=== PATIENT | male | born 1990 | race Caucasian/White ===

== ENCOUNTER 2022-05-23 14:03 | Emergency (ER) | payer OTHER ==
[2022-05-23 14:41] LABS: Absolute Lymphocytes (CBC) 0.8 K/uL (0.7-4.9); Hematocrit 52.7 % (39.6-49.0); Lymphocytes % 7.4 % (15.3-44.8); MCV 85.6 fL (80-100); MPV 8.1 fL (7.6-11.3); RBC Red Blood Cell Count 6.16 M/uL (4.33-5.43)
[2022-05-23] MEDS ORDERED: FAMOTIDINE 20 MG/2 ML VIAL IV ONE (14:41)
[2022-05-23] MEDS ORDERED: NA CHLORIDE 0.9% 1,000 ML ONE ×2 (14:41→16:31)
[2022-05-23] MEDS ORDERED: ONDANSETRON 4 MG/2 ML VIAL ONE ×3 (14:41→18:40)
[2022-05-23 15:03] LABS: Albumin 4.6 g/dL (3.4-5.0); Bilirubin Total 2.1 mg/dL (0.2-1.0); Potassium 4.1 mmol/L (3.5-5.1)
--- NOTE | 2022-05-23 15:51 | RAD REPORT ---
EXAM DESCRIPTION: CT - Abdomen Pelvis Wo Contrast - 05/23/2022 3:15 pm CLINICAL HISTORY: abd pain, constipation COMPARISON: No comparisons TECHNIQUE: Axial [address] imaging of the abdomen and pelvis was performed without IV contrast. No IV contrast was given because of allergy, abnormal renal function, patient refusal or physician re quest. Oral contrast was given. All CT scans are performed using dose optimization technique as appropriate and may include automated exposure control or mA/KV adjustment according to patient size. FINDINGS: No suspicious findings in the lung bases. The liver, spleen and pancreas show no suspicious findings on non-contrast imaging. Gallbladder and b iliary tree are also without suspicious finding. No hydronephrosis or suspicious renal mass. No significant adrenal finding. Isodense renal masses an d pyelonephritis cannot be excluded in the absence of IV contrast. Well filled urinary bladder shows no suspicious finding. No prostate gland abnormality. No dilated bowel loops or bowel wall thickening. No abnormal stool volume in the colon. The appendix is not clearly defined. There is no indirect evidence for appendicitis. No free air, free fluid or in flammatory stranding. No hernia, mass or bulky lymphadenopathy. No suspicious bony findings. IMPRESSION: Non-contrast enhanced CT abdomen and pelvis imaging show no significant or suspicious fi nding. Full assessment is limited is the absence of IV contrast.
--- NOTE | 2022-05-23 16:35 | ER ---
Nurse's Notes [facility] Name: Celestine Gracia Age: 32 yrs Sex: Male : 1990 Arrival Date: 05/23/2022 Time: 14:08 Bed 5 Private MD: Diagnosis: Acute kidney failure, unspecified;Dehydration Presentation: 05/23 14:08 Chief complaint: Patient states: N/V and abd cramping after eating anything that began ss 6 days ago. Last BM 6 days ago. Coronavirus screen: Client denies travel out of the [place] in the last 14 days. Ebola Screen: Patient denies exposure to infectious person. Patient denies travel to an Ebola-affected area in the 21 days before illness onset. Initial Sepsis Screen: Does the patient meet any 2 criteria? No. Patient's initial sepsis screen is negative. Does the patient have a suspected source of infection? No. Patient's initial sepsis screen is negative. Risk Assessment: Do you want to hurt yourself or someone else? Patient reports no desire to harm self or others. Onset of symptoms was May 16, 2022. 14:08 Method Of Arrival: Law Enforcement: [place] [employer] ss 14:08 Acuity: LUIS ENRIQUE 3 ss Historical: - Allergies: 14:12 No Known Allergies; ss - Home Meds: 14:12 lisinopril 20 mg Oral tab 1 tab once daily [Active]; atorvastatin 20 mg oral tab 1 tab ss once daily [Active]; - PMHx: 14:12 Hypertensive disorder; high cholesterol; ss - PSHx: 14:12 hemorrhoids; ss - Immunization history:: Client reports receiving the 2nd dose of the Covid vaccine. - Social history:: Smoking status: Patient denies any tobacco usage or history of. Patient/guardian denies using alcohol, street drugs. Screenin:17 Abuse screen: Denies threats or abuse. Denies injuries from another. Nutritional ph screening: No deficits noted. Tuberculosis screening: No symptoms or risk factors identified. Fall Risk None identified. Assessment: 15:19 General: Appears in no apparent distress. ill, slender, Behavior is calm, cooperative, ph appropriate for age, drowsy. Pain: Complains of pain in abdomen. Neuro: Level of Consciousness is awake, alert, obeys commands, Oriented to person, place, time, situation. Cardiovascular: Capillary refill < 3 seconds in bilateral fingers Patient's skin is warm and dry. GI: Abdomen is non-distended, Reports lower abdominal pain, upper abdominal pain, nausea, vomiting. Derm: Skin is pink, warm \T\ dry. Musculoskeletal: Circulation, motion, and sensation intact. Range of motion: intact in all extremities. 16:40 Reassessment: Patient appears in no apparent distress at this time. Patient and/or ph family updated on plan of care and expected duration. Pain level reassessed. Patient is alert, oriented x 3, equal unlabored respirations, skin warm/dry/pink. report called to [facility], awaiting transport. 17:59 Reassessment: Patient appears in no apparent distress at this time. Patient and/or ph family updated on plan of care and expected duration. Pain level reassessed. Patient is alert, oriented x 3, equal unlabored respirations, skin warm/dry/pink. Vital Signs: 14:08 BP 126 / 79; Pulse 89; Resp 15; Pulse Ox 99% on R/A; Weight 61.23 kg; Height 6 ft. 0 ss in. (182.88 cm); Pain 6/10; 16:30 BP 136 / 62; Pulse 84; Resp 16; Pulse Ox 98% on R/A; ph 18:00 BP 118 / 75; Pulse 74; Resp 15; Temp 97.5(TE); Pulse Ox 98% on R/A; ph 14:08 Body Mass Index 18.31 (61.23 kg, 182.88 cm) ss ED Course: 14:08 Patient arrived in ED. ss 14:09 Nahed Montenegro FNP-C is [facility]. kb 14:09 Ole Osborne MD is Attending Physician. kb 14:11 Triage completed. ss 14:12 Arm band placed on right wrist. ss 14:15 Inserted saline lock: 22 gauge in right forearm, using aseptic technique. Blood ph collected. 14:21 Shaunna Myers, LATASHA is Primary Nurse. ph 15:17 Abdomen In Process Unspecified. EDMS 15:17 Patient has correct armband on for positive identification. Bed in low position. Call ph light in reach. Side rails up X 1. Pulse ox on. NIBP on. 18:57 No provider procedures requiring assistance completed. Patient transferred, IV remains ph in place. Administered Medications: 14:40 Drug: NS 0.9% 1000 ml Route: IV; Rate: 1 bolus; Site: right forearm; ph 16:00 Follow up: Response: No adverse reaction; IV Status: Completed infusion; IV Intake: ph 1000ml 14:40 Drug: Zofran (Ondansetron) 4 mg Route: IVP; Site: right forearm; ph 17:49 Follow up: Response: No adverse reaction ll1 14:41 Drug: Pepcid (famotidine) 20 mg Route: IVP; Site: right forearm; ph 17:49 Follow up: Response: No adverse reaction ll1 16:30 Drug: NS 0.9% 1000 ml Route: IV; Rate: 1000 ml; Site: right forearm; ph 17:48 Follow up: Response: No adverse reaction; IV Status: Completed infusion; IV Intake: ll1 1000ml 17:48 Drug: NS 0.9% 1000 ml Route: IV; Rate: 100 ml/hr; Site: right forearm; ll1 18:57 Follow up: Response: No adverse reaction; IV Status: Completed infusion; IV Intake: ph 1000ml 18:20 Drug: Zofran (Ondansetron) 4 mg Route: IVP; Site: right antecubital; ph 18:57 Follow up: Response: No adverse reaction ph 18:49 Drug: Bentyl (dicyclomine) 20 mg Route: IM; Site: left deltoid; ph 18:58 Follow up: Response: No adverse reaction ph Medication: 15:17 VIS not applicable for this client. ph Intake: 16:00 IV: 1000ml; Total: 1000ml. ph 17:48 IV: 1000ml; Total: 2000ml. ll1 18:57 IV: 1000ml; Total: 3000ml. ph Outcome: 16:34 ER care complete, transfer ordered by . olivia 19:27 Patient left the ED. jb4 19:27 Transferred by ground EMS to [facility], Transfer form ph completed. X-rays sent w/ patient. 19:27 Condition: stable Signatures: Dispatcher [employer] EDMS Nahed Montenegro FNP-C FNP-Ckb Smirch, Shelby, RN RN ss Hall, Patricia, RN RN Hoang Menendez RN RN jb4 Demond, Lynsay, RN RN ll1
--- NOTE | 2022-05-23 16:35 | EDPHYS ---
Physician Documentation [facility] Name: Celestine Gracia Age: 32 yrs Sex: Male : 1990 Arrival Date: 05/23/2022 Time: 14:08 Bed 5 Private MD: ED Physician Ole Osborne HPI: 05/23 16:34 This 32 yrs old Male presents to ER via Law Enforcement with complaints of kb Nausea/Vomiting. 16:34 The patient presents to the emergency department with nausea, vomiting, abdominal pain. kb Onset: The symptoms/episode began/occurred 5 day(s) ago. Possible causes: unknown. The symptoms are aggravated by nothing. The symptoms are alleviated by nothing. Associated signs and symptoms: Pertinent positives: abdominal pain, constipation, nausea, vomiting. Severity of symptoms: At their worst the symptoms were moderate in the emergency department the symptoms are unchanged. The patient has not experienced similar symptoms in the past. The patient has not recently seen a physician. Patient reports nausea, vomiting, and abdominal pain for 5 days. States unable to tolerate anything by mouth. Reports last bowel movement 6 days ago.. Historical: - Allergies: 14:12 No Known Allergies; ss - Home Meds: 14:12 lisinopril 20 mg Oral tab 1 tab once daily [Active]; atorvastatin 20 mg oral tab 1 tab ss once daily [Active]; - PMHx: 14:12 Hypertensive disorder; high cholesterol; ss - PSHx: 14:12 hemorrhoids; ss - Immunization history:: Client reports receiving the 2nd dose of the Covid vaccine. - Social history:: Smoking status: Patient denies any tobacco usage or history of. Patient/guardian denies using alcohol, street drugs. ROS: 16:32 Constitutional: Negative for fever, chills, and weight loss. kb 16:32 Abdomen/GI: Positive for abdominal pain, nausea and vomiting, constipation. 16:32 All other systems are negative. Exam: 16:32 Constitutional: This is a well developed, well nourished patient who is awake, alert, kb and in no acute distress. Head/Face: Normocephalic, atraumatic. ENT: Moist Mucous membranes Chest/axilla: Normal chest wall appearance and motion. Cardiovascular: Regular rate and rhythm with a normal S1 and S2. No gallops, murmurs, or rubs. No pulse deficits. Respiratory: Respirations even and unlabored. No increased work of breathing. Talking in full sentences Skin: Warm, dry with normal turgor. Normal color. MS/ Extremity: Pulses equal, no cyanosis. Neurovascular intact. Full, normal range of motion. Neuro: Awake and alert, GCS 15, oriented to person, place, time, and situation. Moves all extremities. Normal gait. Psych: Awake, alert, with orientation to person, place and time. Behavior, mood, and affect are within normal limits. 16:32 Abdomen/GI: Inspection: abdomen appears normal, Bowel sounds: normal, Palpation: soft, in all quadrants, moderate abdominal tenderness, in all quadrants. Vital Signs: 14:08 BP 126 / 79; Pulse 89; Resp 15; Pulse Ox 99% on R/A; Weight 61.23 kg; Height 6 ft. 0 ss in. (182.88 cm); Pain 6/10; 16:30 BP 136 / 62; Pulse 84; Resp 16; Pulse Ox 98% on R/A; ph 18:00 BP 118 / 75; Pulse 74; Resp 15; Temp 97.5(TE); Pulse Ox 98% on R/A; ph 14:08 Body Mass Index 18.31 (61.23 kg, 182.88 cm) ss MDM: 14:09 Patient medically screened. kb 16:32 Data reviewed: vital signs, nurses notes. Data interpreted: Pulse oximetry: on room air kb is 99 %. Interpretation: normal. Counseling: I had a detailed discussion with the patient and/or guardian regarding: the historical points, exam findings, and any diagnostic results supporting the discharge/admit diagnosis, lab results, radiology results, the need to transfer to another facility, inmate. 16:32 ED course: Dr Kaden Sanders accepts pt for transfer to [facility]. kb 05/23 14:12 Order name: CBC with Diff; Complete Time: 14:45 kb 05/23 14:12 Order name: CMP; Complete Time: 15:20 kb 05/23 14:12 Order name: Lipase; Complete Time: 15:20 kb 05/23 14:12 Order name: COVID-19 SARS RT PCR (Document "Date of Onset" if Symptomatic); Complete kb Time: 15:51 05/23 15:08 Order name: Abdomen ; Complete Time: 15:54 EDMS 05/23 14:12 Order name: IV Saline Lock; Complete Time: 14:40 kb 05/23 14:12 Order name: Labs collected and sent; Complete Time: 14:40 kb Administered Medications: 14:40 Drug: NS 0.9% 1000 ml Route: IV; Rate: 1 bolus; Site: right forearm; ph 16:00 Follow up: Response: No adverse reaction; IV Status: Completed infusion; IV Intake: ph 1000ml 14:40 Drug: Zofran (Ondansetron) 4 mg Route: IVP; Site: right forearm; ph 17:49 Follow up: Response: No adverse reaction ll1 14:41 Drug: Pepcid (famotidine) 20 mg Route: IVP; Site: right forearm; ph 17:49 Follow up: Response: No adverse reaction ll1 16:30 Drug: NS 0.9% 1000 ml Route: IV; Rate: 1000 ml; Site: right forearm; ph 17:48 Follow up: Response: No adverse reaction; IV Status: Completed infusion; IV Intake: ll1 1000ml 17:48 Drug: NS 0.9% 1000 ml Route: IV; Rate: 100 ml/hr; Site: right forearm; ll1 18:57 Follow up: Response: No adverse reaction; IV Status: Completed infusion; IV Intake: ph 1000ml 18:20 Drug: Zofran (Ondansetron) 4 mg Route: IVP; Site: right antecubital; ph 18:57 Follow up: Response: No adverse reaction ph 18:49 Drug: Bentyl (dicyclomine) 20 mg Route: IM; Site: left deltoid; ph 18:58 Follow up: Response: No adverse reaction ph Disposition: 05/24 09:07 Co-signature as Attending Physician, Ole Osborne MD I agree with the assessment and kdr plan of care. Disposition Summary: 05/23/22 16:34 Transfer Ordered Transfer Location: [facility] kb Reason: Higher level of care kb Condition: Stable kb Problem: new kb Symptoms: are unchanged kb Accepting Physician: dr Kaden Sanders(05/23/22 19:27) jb4 Diagnosis - Acute kidney failure, unspecified kb - Dehydration kb Forms: - Medication Reconciliation Form kb - SBAR form kb Signatures: Dispatcher [employer] EDNahed Mathur FNP-C FNP-CkOle Lazcano MD MD kdr Allison Borden, LATASHA RN ss Shaunna Myers RN RN Hoang Antonio, RN RN jb4 Mary Lagos RN RN ll1 Corrections: (The following items were deleted from the chart) 05/23 15:08 14:13 Abdomen Pelvis W Con+CT.RAD.BRZ ordered. EDMS EDMS 16:34 16:32 ED course: Dr Joselito Sanders accepts pt for transfer to [facility]. kb kb 19:27 16:34 dr Kaden Sanders kb jb4
[2022-05-23] MEDS ORDERED: NA CHLORIDE 0.9% 500 ML ONE (17:49)
[2022-05-23] MEDS ORDERED: DICYCLOMINE HCL 20 MG/2 ML AMP IM ONE (18:46)
[2022-05-23 20:50] VITALS: O2SAT 98
[2022-05-23 20:53] VITALS: BP 118/75; TEMP 97.5
== END 2022-05-23 19:27 | disposition short-term general hospital (02) ==
LOC: ER 14:03
DX: N17.9 Acute kidney failure, unspecified (principal); E86.0 Dehydration; I10 Essential (primary) hypertension; E78.00 Pure hypercholesterolemia, unspecified; Z20.822 Contact with and (suspected) exposure to COVID-19
CPT/HCPCS: 85025; 36415; 83690; 80053; 74176; 96372; 99285; U0003; J2405 ×3; J0500; J7030; J7040